=== PATIENT | female | born 1940 | race Caucasian/White ===

== ENCOUNTER → 2016-04-06 | Outpatient (CLI) | payer BC | END | disposition home or self-care (01) | LOC: C.MAMM 11:12 | PROVIDERS: ATTEND Family Medicine | DX: M81.0 Age-related osteoporosis without current pathological fracture (principal) ==

== ENCOUNTER → 2017-04-23 | Outpatient (CLI) | payer BC ==
--- NOTE | 2017-04-23 12:58 | DIAGNOSTIC IMAGING REPORT ---
RIGHT HAND 3 VIEWS CLINICAL HISTORY: Osteoarthritis of the thumb. FINDINGS: 3 views of the right hand are correlated with radiographs of the right wrist dated 01/30/2006. The skeletal structures are osteopenic. No fracture is seen. There is degenerative narrowing at the radiocarpal articulation. There is moderate osteoarthritic change at the first carpometacarpal articulation with bony sclerosis, overgrowth, and subluxation. Mild osteoarthritic change is seen involving the interphalangeal joints and the first metacarpophalangeal joint. A small benign-appearing bony excrescence is incidentally noted arising from the shaft of the third proximal phalanx. The overlying soft tissues are within normal limits. IMPRESSION: 1. Osteopenia and arthritic change as above. 2. A small benign-appearing bony excrescence is noted in the distal shaft of the third proximal phalanx. This is of indeterminant etiology and significance. Electronically signed by: Jonah Williamson M.D. 04/23/2017 12:57 PM Dictated Date/Time: 04/23/2017 12:54 PM
== END | disposition home or self-care (01) ==
LOC: C.RAD1850 11:45
PROVIDERS: ATTEND Family Medicine
DX: M18.9 Osteoarthritis of first carpometacarpal joint, unspecified (principal)

== ENCOUNTER → 2017-06-04 | Outpatient (CLI) | payer BC ==
--- NOTE | 2017-06-05 15:16 | MAMMOGRAPHY REPORT ---
BILATERAL DIGITAL SCREENING MAMMOGRAM TOMOSYNTHESIS WITH CAD: 06/04/2017 CLINICAL HISTORY: Routine screening. Patient has no complaints. TECHNIQUE: Breast tomosynthesis in addition to standard 2D mammography was performed. Current study was also evaluated with a Computer Aided Detection (CAD) system. COMPARISON: Comparison is made to exams dated: 03/14/2016 mammogram, 09/03/2013 mammogram, 07/18/2011 m ammogram, 08/01/2012 mammogram, 06/23/2010 mammogram, and 06/21/2009 mammogram - [facility] nter. BREAST COMPOSITION: The tissue of both breasts is heterogeneously dense, which may obscure small mas ses. FINDINGS: The parenchymal pattern is similar to prior mammograms. There is stable asymmetry in the superior right breast on the MLO view. No developing mass, architectural distortion or cluster of colbert spicious microcalcifications is seen in either breast. IMPRESSION: ACR BI-RADS CATEGORY 2: BENIGN There is no mammographic evidence of malignancy. A 1 year screening mammogram is recommended. The pa tient will receive written notification of the results. Approximately 10% of breast cancers are not detected with mammography. A negative mammographic report should not delay biopsy if a clinically suggestive mass is present. Deepa Dumas M.D. ay/:06/04/2017 15:48:41 Manager Cargo: Hannah Altamirano, [facility] letter sent: Normal 1/2 BI-RADS Code: ACR BI-RADS Category 2: Benign
== END | disposition home or self-care (01) ==
LOC: C.MAMM 09:56
PROVIDERS: ATTEND Family Medicine
DX: Z12.31 Encounter for screening mammogram for malignant neoplasm of breast (principal)